=== PATIENT | male | born 1960 | race Caucasian/White ===

== ENCOUNTER 2017-09-03 10:33 | Emergency (ER) | payer OTHER, BC ==
[2017-09-03] MEDS ORDERED: LIDOCAINE 1% (MDV) 20 ML INJ SC (11:00)
[2017-09-03] MEDS: IBUPROFEN 600 MG TAB PO (11:15)
[2017-09-03] MEDS: CEPHALEXIN 500 MG CAP PO (11:26)
[2017-09-03] MEDS ORDERED: LIDOCAINE 1% (MDV) 50 ML INJ INJ (11:30)
== END 2017-09-03 12:22 | disposition home or self-care (01) ==
LOC: FTE 10:33
DX: S68.116A Complete traumatic metacarpophalangeal amputation of right little finger, initial encounter (principal); I10 Essential (primary) hypertension; W27.0XXA Contact with workbench tool, initial encounter; Y92.9 Unspecified place or not applicable; Z87.891 Personal history of nicotine dependence; Z79.84 Long term (current) use of oral hypoglycemic drugs
CPT/HCPCS: 73140; 99283-25